=== PATIENT | male | born 2000 | race Caucasian/White ===

== ENCOUNTER 2023-03-20 16:42 | Emergency (ER) | payer MEDICAID ==
[~2023-03-20] VITALS: Ht 170.2 cm; Wt 57.0 kg
[2023-03-20 17:05] VITALS: BP 126/96; PULSE 83; RESP 16; TEMP 98.5; O2SAT 99
== END 2023-03-21 01:31 | disposition home or self-care (01) ==
LOC: ER 16:42
DX: R07.81 Pleurodynia (principal)
CPT/HCPCS: 71045; 99283